=== PATIENT | male | born 2000 | race Caucasian/White ===

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

== ENCOUNTER 2020-08-09 22:37 | Observation (INO) ==
--- NOTE | 2020-08-09 23:00 | Emergency Department Note ---
Impression & Plan Seizure ED Provider Note Name: ROSALVA LEMA Age: 20 Sex: M Arrives Via: Ambulance Informant: Patient, Mother, EMS ED Provider: Mane Longoria MD Chief Complaint: Seizure Impression: Seizure Medical Decision Makin yr old male with history DMI, Asthma and Epilepsy arrives following witnessed seizure while studying with friends. No head injury nor other trauma. He arrives in no distress and feeling well. No recent missed meds. Given IV flui ds and monitored for 3 hours without further issues. Labs unremarkable. Initial plan to discharge to home however as he was about to leave developed another seizure. Roughly 5 min tonix clonic which broke just as 2mg IV Ativan was being given. Patient post ictal for some time but gradually coming around. BSG OK post initial seizure. Still no neuro deficits nor headache. Did opt to load with further Keppra at this time. Hospitalist in to evaluate further. I did have discussion with mother regarding findings and plan. Triage/Nursing Notes reviewed by Me Additional history obtained from chart Differentials:Infection, dehydration, metabolic abnormality, hypo/hyperglycemia, electrolyte disturbance, anemia, hypoxia, cardiac sources, intracerebral event, toxicologic, neurologic, as well as other pathologies. Vital Signs: reviewed and remarkable for no significant abnormalities Interventions: saline lock, nss bolus, ativan 2mg IV, keppra 1gm IV Labs:Reviewed and remarkable for no significant abnormalities Cardiac/Tele Monitoring: Cardiac Monitoring: An Order was placed for continuous cardiac monitoring. The monitor shows a rate of 100 with a normal sinus rhythm. Consults:Dr Fischer Hospitalist agrees to evaluate further Plan: Disposition:Hospitalization. Condition: Good History of Present Illness:20 yr old male arrives for evaluation post seizure. Patient was working with friends on a group project this evening when he had a witnessed several minute seizure. Patient notes feeling fine prior to this and does not recall event. Admits vaguely remembering ambulance ride. No recent missed doses of his Keppra/Lamictal and he states he has been relatively unstressed with class/life. No recent trauma, injuries, nor changes to diet. No drugs, etoh, nor tobacco use. States he has long history of seizures with last one about a year ago. No headache, vision changes, chest pain, sob, fevers, neck pain/stiffness, nausea, vomiting, abdominal pain, urinary/bowel symptoms, leg swelling, bruising/rashes, nor other symptoms. Nothing makes better nor worse. Has Neurologist in [place] he follows with. ROS: See above HPI for pertinent positives & negatives. A total of 10 systems reviewed and were otherwise negative. 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 EYES: No scleral icterus, unremarkable pupils. ENT: Mucous membranes moist, no nasal congestion. NECK: No masses appreciated, nomeningismus, trachea is midline. RESPIRATORY: No dyspnea. Clear to auscultation and equal bilaterally. No wheeze, no rhonchi. CARDIOVASCULAR: Regular rate and rhythm.No murmurs, rubs, gallops appreciated. GASTROINTESTINAL: Abdomen soft, non-tender, no peritonitis.Bowel sounds positive.No masses appreciated. BACK: No midline tenderness, no CVA tenderness EXTREMITIES: Normal motion all extremities, no cyanosis, no edema. NEUROLOGIC: Alert and oriented, no acute motor or sensory deficits, no focal weakness, cranial nerves grossly intact. SKIN: No rash, no jaundice, no diaphoresis. PSYCH: Appropriate GCS: 15 ED Course: Times/Reassessments: Feeling well for 3 hours, seizure at discharge, post ictal though stable and gradually coming around Mane Longoria MD Past Med/Surg History Medical History (Updated 08/10/20 @ 02:42 by Tanna Fischer DO) Asthma Epilepsy Seizure Type 1 diabetes Surgical History History of placement of ear tubes Social History Smoking Status: Never smoker Preferred Language: Kiswahili Communication Ability: Impaired Stock Speculator Required: No marital status: Single Current Living Situation: Other Current Living Situation Comment: [employer] student current occupational status: student Feels Safe at Home: Yes Assistive Devices: None Allergies Allergies Allergy/AdvReac Type Severity Reaction Status Date / Time No Known Allergies Allergy Unverified 08/09/20 23:01 Home Meds Home Medications Medication Instructions Recorded Confirmed insulin detemir U-100 [Levemir 15 unit SUBCUT QPM 01/20/19 08/09/20 FlexTouch U-100 Insuln] insulin lispro [Humalog KwikPen 0 unit SUBCUT UD 01/20/19 08/09/20 Insulin] lamotrigine 150 mg PO BID 08/09/20 08/09/20 lamotrigine 200 mg PO BID 08/09/20 08/09/20 levetiracetam 750 mg PO BID 08/09/20 08/09/20 Results & Data (ED) Vital Signs Vital Signs - 24 hr 08/09/20 22:37 08/09/20 22:43 08/09/20 22:59 Temperature 37.0 C Temperature Source Oral Pulse Rate 102 H 89 91 H Pulse Rate [Right Finger] Pulse Rate from SpO2 Sensor 92 H 93 H Respiratory Rate 12 20 14 Respiratory Effort / Characteristics Non-Labored Spontaneous Respiratory Depth Normal Respiratory Pattern Regular Blood Pressure 133/71 133/71 Blood Pressure [Right Arm] Blood Pressure Mean 91 91 Blood Pressure Mean [Right Arm] Pulse Oximetry 95 92 92 Oxygen Delivery Method Room Air Oxygen Flow Rate Sepsis Recent Fever Within 48 Hours No Sepsis New/Unexplained Change in Mental Status No Sepsis Action Taken by Nursing No Action Required 08/09/20 23:00 08/09/20 23:30 08/09/20 23:41 Temperature Temperature Source Pulse Rate 99 H 84 89 Pulse Rate [Right Finger] Pulse Rate from SpO2 Sensor 98 H 85 92 H Respiratory Rate 18 19 19 Respiratory Effort / Characteristics Respiratory Depth Respiratory Pattern Blood Pressure 124/76 124/76 Blood Pressure [Right Arm] Blood Pressure Mean 92 92 Blood Pressure Mean [Right Arm] Pulse Oximetry 94 95 97 Oxygen Delivery Method Oxygen Flow Rate Sepsis Recent Fever Within 48 Hours Sepsis New/Unexplained Change in Mental Status Sepsis Action Taken by Nursing 08/10/20 00:00 08/10/20 00:01 08/10/20 00:33 Temperature Temperature Source Pulse Rate 93 H 86 89 Pulse Rate [Right Finger] Pulse Rate from SpO2 Sensor 93 H 85 88 Respiratory Rate 15 20 23 Respiratory Effort / Characteristics Respiratory Depth Respiratory Pattern Blood Pressure 113/65 Blood Pressure [Right Arm] Blood Pressure Mean 81 Blood Pressure Mean [Right Arm] Pulse Oximetry 97 98 98 Oxygen Delivery Method Oxygen Flow Rate Sepsis Recent Fever Within 48 Hours Sepsis New/Unexplained Change in Mental Status Sepsis Action Taken by Nursing 08/10/20 00:34 08/10/20 00:35 08/10/20 01:00 Temperature Temperature Source Pulse Rate 82 81 81 Pulse Rate [Right Finger] Pulse Rate from SpO2 Sensor 83 81 82 Respiratory Rate 15 16 17 Respiratory Effort / Characteristics Respiratory Depth Respiratory Pattern Blood Pressure 101/75 117/64 Blood Pressure [Right Arm] Blood Pressure Mean 83 81 Blood Pressure Mean [Right Arm] Pulse Oximetry 94 98 96 Oxygen Delivery Method Oxygen Flow Rate Sepsis Recent Fever Within 48 Hours Sepsis New/Unexplained Change in Mental Status Sepsis Action Taken by Nursing 08/10/20 01:01 08/10/20 01:37 08/10/20 01:38 Temperature Temperature Source Pulse Rate 79 114 H Pulse Rate [Right Finger] Pulse Rate from SpO2 Sensor 79 109 H 114 H Respiratory Rate 18 20 Respiratory Effort / Characteristics Respiratory Depth Respiratory Pattern Blood Pressure 151/75 H Blood Pressure [Right Arm] Blood Pressure Mean 100 Blood Pressure Mean [Right Arm] Pulse Oximetry 96 99 99 Oxygen Delivery Method Oxygen Flow Rate Sepsis Recent Fever Within 48 Hours Sepsis New/Unexplained Change in Mental Status Sepsis Action Taken by Nursing 08/10/20 01:42 08/10/20 02:00 08/10/20 02:01 Temperature Temperature Source Pulse Rate 105 H 101 H Pulse Rate [Right Finger] 114 H Pulse Rate from SpO2 Sensor 105 H 102 H Respiratory Rate 20 21 20 Respiratory Effort / Characteristics Respiratory Depth Respiratory Pattern Blood Pressure 122/58 L Blood Pressure [Right Arm] 151/75 H Blood Pressure Mean 79 Blood Pressure Mean [Right Arm] 100 Pulse Oximetry 99 99 99 Oxygen Delivery Method Room Air Non-rebreather Non-rebreather Oxygen Flow Rate 15 15 Sepsis Recent Fever Within 48 Hours Sepsis New/Unexplained Change in Mental Status Sepsis Action Taken by Nursing Laboratory Data Result diagrams: 08/09/20 22:50 08/09/20 22:50 Lab Results 08/09/20 08/09/20 08/10/20 Range/Units 22:50 22:50 01:56 WBC 9.59 (4.8-10.8) K/uL RBC 5.05 (4.7-6.1) M/uL Hgb 15.2 (14.0-18.0) g/dL Hct 45.0 (42-52) % MCV 89.1 (80-100) fL MCH 30.1 (25-34) pg MCHC 33.8 (32-36) g/dL RDW Std Deviation 39.1 (36.4-46.3) fL RDW Coeff of Paulette 12.3 (11.5-14.5) % Plt Count 327 (130-400) K/uL MPV 10.1 (7.4-10.4) fL Immature Gran % (Auto) 0.2 % Neut % (Auto) 52.6 % Lymph % (Auto) 38.3 % Hutchinson % (Auto) 7.8 % Eos % (Auto) 0.8 % Baso % (Auto) 0.3 % Neut # (Auto) 5.04 (1.4-6.5) K/uL Lymph # (Auto) 3.67 H (1.2-3.4) K/uL Hutchinson # (Auto) 0.75 H (0.11-0.59) K/uL Eos # (Auto) 0.08 (0-0.5) K/uL Baso # (Auto) 0.03 (0-0.2) K/uL Immature Gran # (Auto) 0.02 (0.00-0.02) K/uL Sodium 138 (136-145) mmol/L Potassium 4.1 (3.5-5.1) mmol/L Chloride 104 (98-107) mmol/L Carbon Dioxide 24 (21-32) mmol/L Anion Gap 10.0 (3-11) BUN 18 (7-18) mg/dl Creatinine 1.16 (0.6-1.4) mg/dl Est Cr Clr Drug Dosing 98.5 ml/min Est GFR ( Amer) 103.0 Est GFR (Non-Af Amer) 88.9 BUN/Creatinine Ratio 15.6 (10-20) Glucose 188 H (70-99) mg/dl POC Glucose (70-99) mg/dl Calcium 9.3 (8.5-10.1) mg/dl Phosphorus 3.8 (2.5-4.9) mg/dl Magnesium 2.2 (1.8-2.4) mg/dl COVID-19 Eval Order CovFluRsv at [facility] SARS-CoV-2 (PCR) (Negative) Influenza Type A (PCR) (Neg) Influenza Type B (PCR) (Neg) RSV (RT-PCR) (Neg) 08/10/20 08/10/20 Range/Units 01:56 02:02 WBC (4.8-10.8) K/uL RBC (4.7-6.1) M/uL Hgb (14.0-18.0) g/dL Hct (42-52) % MCV (80-100) fL MCH (25-34) pg MCHC (32-36) g/dL RDW Std Deviation (36.4-46.3) fL RDW Coeff of Paulette (11.5-14.5) % Plt Count (130-400) K/uL MPV (7.4-10.4) fL Immature Gran % (Auto) % Neut % (Auto) % Lymph % (Auto) % Hutchinson % (Auto) % Eos % (Auto) % Baso % (Auto) % Neut # (Auto) (1.4-6.5) K/uL Lymph # (Auto) (1.2-3.4) K/uL Hutchinson # (Auto) (0.11-0.59) K/uL Eos # (Auto) (0-0.5) K/uL Baso # (Auto) (0-0.2) K/uL Immature Gran # (Auto) (0.00-0.02) K/uL Sodium (136-145) mmol/L Potassium (3.5-5.1) mmol/L Chloride (98-107) mmol/L Carbon Dioxide (21-32) mmol/L Anion Gap (3-11) BUN (7-18) mg/dl Creatinine (0.6-1.4) mg/dl Est Cr Clr Drug Dosing ml/min Est GFR ( Amer) Est GFR (Non-Af Amer) BUN/Creatinine Ratio (10-20) Glucose (70-99) mg/dl POC Glucose 168 H (70-99) mg/dl Calcium (8.5-10.1) mg/dl Phosphorus (2.5-4.9) mg/dl Magnesium (1.8-2.4) mg/dl COVID-19 Eval Order SARS-CoV-2 (PCR) NEGATIVE (Negative) Influenza Type A (PCR) Negative (Neg) Influenza Type B (PCR) Negative (Neg) RSV (RT-PCR) Negative (Neg) Administered Medications Discontinued Medications Lorazepam (Ativan) 2 mg in 4 mls @ 4 mls/min IV NOW STA Stop: 08/10/20 01:37 Last Admin: 08/10/20 01:45 Dose: 4 mls/min Documented by: [id number] Sodium Chloride (Nss 1000ml) 1,000 mls @ 999 mls/hr IV .Q1H1M ONE Stop: 08/10/20 02:36 Last Infusion: 08/10/20 03:07 Dose: 0 mls/hr Documented by: [id number] Admin: 08/10/20 01:47 Dose: 999 mls/hr Documented by: [id number] Levetiracetam 1,000 mg/ Sodium (Chloride) 110 mls @ 440 mls/hr IV NOW STA Stop: 08/10/20 01:50 Last Infusion: 08/10/20 02:15 Dose: 0 mls/hr Documented by: [id number] Admin: 08/10/20 01:59 Dose: 440 mls/hr Documented by: [id number] Insulin Glargine (Lantus Per Unit Charge) 7 units SQ NOW STA Stop: 08/10/20 02:27 Last Admin: 08/10/20 02:57 Dose: 7 units Documented by: [id number] Cosigned by: [id number] Lorazepam (Lorazepam 2 Mg/Ml Vial (Im Use)) Confirm Administered Dose 2 mg .TREY DAY .STK-MED ONE Stop: 08/10/20 01:35 Last Admin: 08/10/20 02:02 Dose: Not Given Documented by: [id number] Discharge Plan Visit Data Chief Complaint: Seizure Stated Complaint: Seizure like activity w/ hx of the same ED Provider: Mane Longoria Discharge Problem: Seizure Patient Disposition: Admitted As Inpatient Condition: Good Discharge Instructions Interventions: ED Discharge Assessment Last Done: 08/10/20 01:22
[2020-08-09 23:07] LABS: Basophils # (auto) 0.03 K/uL (0-0.2); Basophils % (auto) 0.3 %; Eosinophils # (auto) 0.08 K/uL (0-0.5); Eosinophils % (auto) 0.8 %; Hemoglobin 15.2 g/dL (14.0-18.0); Immature Granulocytes # (auto) 0.02 K/uL (0.00-0.02); Immature Granulocytes % (auto) 0.2 %; Lymphocytes # (auto) 3.67 K/uL (1.2-3.4); Lymphocytes % (auto) 38.3 %; Mean Corpuscular Hemoglobin 30.1 pg (25-34); Mean Corpuscular Hgb Conc 33.8 g/dL (32-36); Mean Corpuscular Volume 89.1 fL (80-100); Mean Platelet Volume 10.1 fL (7.4-10.4); Monocytes # (auto) 0.75 K/uL (0.11-0.59); Monocytes % (auto) 7.8 %; Neutrophils # (auto) 5.04 K/uL (1.4-6.5); Neutrophils % (auto) 52.6 %; Platelet Count 327 K/uL (130-400); RDW Coefficient of Variation 12.3 % (11.5-14.5); RDW Standard Deviation 39.1 fL (36.4-46.3); Red Blood Count 5.05 M/uL (4.7-6.1); White Blood Count 9.59 K/uL (4.8-10.8)
[2020-08-09 23:25] LABS: BUN Creatinine Ratio 15.6 (10-20); Calcium 9.3 mg/dl (8.5-10.1); Creatinine Clr Calc Pharmacy 98.5 ml/min; Est GFR (Non-African American) 88.9; Potassium 4.1 mmol/L (3.5-5.1)
[2020-08-10] MEDS ORDERED: LORazepam 2 MG/ML VIAL (IM USE) ONE (01:34)
[2020-08-10] MEDS ORDERED: LORazepam 2 MG/4 ML VIAL IV STA (01:36)
[2020-08-10] MEDS ORDERED: SODIUM CHLORIDE 0.9% 1000ML 1,000 ML IV ONE (01:36)
[2020-08-10] MEDS ORDERED: levETIRAcetam 1,000 MG in 0.9 % SODIUM CHLORIDE 100 ML IV STA (01:36)
[2020-08-10] MEDS ORDERED: LANTUS PER UNIT CHARGE SQ STA (02:26)
--- NOTE | 2020-08-10 02:39 | History & Physical Report ---
Date of Service August 10, 2020 Assessment & Plan (1) Seizure: Patient with history of epilepsy presenting with two witnessed tonic- clonic seizures this evening. He reports compliance with his medications. Patient administered Ativan x gm and Keppra in ER. Presently somnolent, arousable, able to answer some questions and follow commands. No focal deficits. -Admit to medical with telemetry -Maintain seizure precautions -Check Mg, PO3, UA and Utox -Continue Lamictal 350mg po BID -Increase Keppra to 1000mg po BID -Consider Neurology consultation Present on Admission?: Yes (2) Type 1 diabetes: Patient reports he did not take his insulin this evening. He typically takes Levemir 15u qHS -Will give Lantus 7u now -ISS -Goal blood sugar 100 - 140 Present on Admission?: Yes (3) Asthma: Chronic. Stable -Continue to monitor F/E/N- Heplock. Monitor electrolytes. CC-Type I Diabetic diet as tolerated Ppx - Low risk for DVT Code - Full Dispo - Admit to medical with telemetry Present on Admission?: Yes History of Present Illness Chief Complaint: Seizure Primary Care Provider: [facility] Elder Guillen is a 20yo male with history of Type I DM, Epilepsy and Asthma presenting from home after a witnessed seizure. Patient is post-ictal at the time of my encounter and is unable to provide full details - history obtained through discussion with ER attending and chart review. Patient has had seizures since he was a senior in high school. He has approximately one seizure per year. This evening he was studying with some friends when he had a tonic clonic seizure. He was brought to [facility] where he was observed in the ER for some time. He was doing well and feeling back to baseline. He was being discharged home and as he was walking out he leaned against the wall and had a tonic clonic seizure lasting appx 3-4 minutes. He was administered Ativan x 2mg IV and Keppra x 1gm. Patient is presently resting comfortably, NAD. ER Course: Ativan x 2mg, NSS x 1L, Keppra x 1gm Allergies Allergy/AdvReac Type Severity Reaction Status Date / Time No Known Allergies Allergy Unverified 08/09/20 23:01 Home Medications Medication Instructions Recorded Confirmed Type insulin detemir U-100 [Levemir 15 unit SUBCUT QPM 01/20/19 08/09/20 History FlexTouch U-100 Insuln] insulin lispro [Humalog KwikPen 0 unit SUBCUT UD 01/20/19 08/09/20 History Insulin] lamotrigine 150 mg PO BID 08/09/20 08/09/20 History lamotrigine 200 mg PO BID 08/09/20 08/09/20 History levetiracetam 750 mg PO BID 08/09/20 08/09/20 History Past Med/Surg History Medical History (Updated 08/10/20 @ 02:42 by Tanna Fischer DO) Asthma Epilepsy Seizure Type 1 diabetes Surgical History History of placement of ear tubes Social History Smoking Status: Never smoker Preferred Language: Italian marital status: Single current occupational status: student Feels Safe at Home: Yes Review of Systems Review of Systems: Unobtainable due to reduced consciousness Physical Exam Physical Exam: General: patient somnolent, arousable, answers questions and follows commands then falls back to sleep Skin: warm, dry, intact, no rashes or lesions HEENT: NC/AT, PERRL, EOMI, anicteric sclera, conjunctiva without injection, external ear normal to inspection and nontender, nares patent, moist mucus membranes, dentition intact, no oropharyngeal lesions, neck supple, trachea midline, no LAD, no thyromegaly, no JVD Heart: +S1/S2, regular, tachycardic, no m/r/g Lungs: equal air entry bilaterally, no rales/rhonchi/wheezes Abd: +BS, soft, NT/ND, no masses/organomegaly/ascites Ext: warm, 2+ pulses in UE/LE bilaterally, no clubbing/cyanosis or edema Neuro: limited exam secondary to somnolence, grossly nonfocal, no facial droop, moving all extremities on command with equal strength 5/5 Results & Data Results & Data (MN) Vital Signs (Past 12 Hours) Vital Signs Temp Pulse Pulse Resp BP BP Pulse Ox 08/10/20 01:42 114 H 20 151/75 H 99 08/10/20 01:38 114 H 20 99 04/20/21 01:37 151/75 H 99 08/10/20 01:01 79 18 96 08/10/20 01:00 81 17 117/64 96 08/10/20 00:35 81 16 98 08/10/20 00:34 82 15 101/75 94 08/10/20 00:33 89 23 98 08/10/20 00:01 86 20 98 08/10/20 00:00 93 H 15 113/65 97 08/09/20 23:41 89 19 124/76 97 08/09/20 23:30 84 19 124/76 95 08/09/20 23:00 99 H 18 94 08/09/20 22:59 91 H 14 92 08/09/20 22:43 89 20 133/71 92 08/09/20 22:37 37.0 C 102 H 12 133/71 95 Laboratory Results Lab Results 08/09/20 08/09/20 08/10/20 Range/Units 22:50 22:50 01:56 WBC 9.59 (4.8-10.8) K/uL RBC 5.05 (4.7-6.1) M/uL Hgb 15.2 (14.0-18.0) g/dL Hct 45.0 (42-52) % MCV 89.1 (80-100) fL MCH 30.1 (25-34) pg MCHC 33.8 (32-36) g/dL RDW Std Deviation 39.1 (36.4-46.3) fL RDW Coeff of Paulette 12.3 (11.5-14.5) % Plt Count 327 (130-400) K/uL MPV 10.1 (7.4-10.4) fL Immature Gran % (Auto) 0.2 % Neut % (Auto) 52.6 % Lymph % (Auto) 38.3 % [place] % (Auto) 7.8 % Eos % (Auto) 0.8 % Baso % (Auto) 0.3 % Neut # (Auto) 5.04 (1.4-6.5) K/uL Lymph # (Auto) 3.67 H (1.2-3.4) K/uL [place] # (Auto) 0.75 H (0.11-0.59) K/uL Eos # (Auto) 0.08 (0-0.5) K/uL Baso # (Auto) 0.03 (0-0.2) K/uL Immature Gran # (Auto) 0.02 (0.00-0.02) K/uL Sodium 138 (136-145) mmol/L Potassium 4.1 (3.5-5.1) mmol/L Chloride 104 (98-107) mmol/L Carbon Dioxide 24 (21-32) mmol/L Anion Gap 10.0 (3-11) BUN 18 (7-18) mg/dl Creatinine 1.16 (0.6-1.4) mg/dl Est Cr Clr Drug Dosing 98.5 ml/min Est GFR ( Amer) 103.0 Est GFR (Non-Af Amer) 88.9 BUN/Creatinine Ratio 15.6 (10-20) Glucose 188 H (70-99) mg/dl POC Glucose (70-99) mg/dl Calcium 9.3 (8.5-10.1) mg/dl COVID-19 Eval Order CovFluRsv at [facility] 08/10/20 Range/Units 02:02 WBC (4.8-10.8) K/uL RBC (4.7-6.1) M/uL Hgb (14.0-18.0) g/dL Hct (42-52) % MCV (80-100) fL MCH (25-34) pg MCHC (32-36) g/dL RDW Std Deviation (36.4-46.3) fL RDW Coeff of Paulette (11.5-14.5) % Plt Count (130-400) K/uL MPV (7.4-10.4) fL Immature Gran % (Auto) % Neut % (Auto) % Lymph % (Auto) % [place] % (Auto) % Eos % (Auto) % Baso % (Auto) % Neut # (Auto) (1.4-6.5) K/uL Lymph # (Auto) (1.2-3.4) K/uL [place] # (Auto) (0.11-0.59) K/uL Eos # (Auto) (0-0.5) K/uL Baso # (Auto) (0-0.2) K/uL Immature Gran # (Auto) (0.00-0.02) K/uL Sodium (136-145) mmol/L Potassium (3.5-5.1) mmol/L Chloride (98-107) mmol/L Carbon Dioxide (21-32) mmol/L Anion Gap (3-11) BUN (7-18) mg/dl Creatinine (0.6-1.4) mg/dl Est Cr Clr Drug Dosing ml/min Est GFR ( Amer) Est GFR (Non-Af Amer) BUN/Creatinine Ratio (10-20) Glucose (70-99) mg/dl POC Glucose 168 H (70-99) mg/dl Calcium (8.5-10.1) mg/dl COVID-19 Eval Order PG Care Time/CCT Total # of Minutes Spent Total Time Spent with Patient: Total time spent is greater than 50% in coordination of care (as documented) at patient's floor/unit and/or counseling patient: Coding Level of Care Code 06446 Initial Inpt Care Lvl 2 Diagnoses Seizure R56.9 Type 1 diabetes E10.9 Diabetes mellitus complication status: without complication Asthma J45.909 Asthma severity: unspecified severity Asthma persistence: unspecified Asthma complication type: uncomplicated (1) Asthma Asthma severity: unspecified severity Asthma persistence: unspecified Asthma complication type: uncomplicated Qualified Code(s): J45.909 - Unspecified asthma, uncomplicated (2) Type 1 diabetes Diabetes mellitus complication status: without complication Qualified Code(s): E10.9 - Type 1 diabetes mellitus without complications
[2020-08-10 02:41] LABS: Influenza A virus by PCR Negative (Neg); Influenza B virus by PCR Negative (Neg); RSV by PCR Negative (Neg); SARS CoV2 RNA(COVID-19) InHosp NEGATIVE (Negative)
[2020-08-10] MEDS ORDERED: DEXTROSE 50% 50 ML SYRINGE IV PRN (04:11)
[2020-08-10] MEDS ORDERED: GLUCAGON FOR INJ 1 MG VIAL SQ PRN (04:11)
[2020-08-10] MEDS ORDERED: GLUCOSE 10 TABS/TUBE PO PRN (04:11)
[2020-08-10] MEDS ORDERED: LORazepam 1 MG/2 ML VIAL IV PRN (04:11)
[2020-08-10] MEDS ORDERED: GLUCOSE 40% GEL 15 GM TUBE PO PRN (04:11)
[2020-08-10] MEDS ORDERED: CARBOHYDRATES FOR HYPOGLYCEMIA PO PRN (04:11)
[2020-08-10 05:10] LABS: Magnesium 2.2 mg/dl (1.8-2.4); Phosphorus 3.8 mg/dl (2.5-4.9)
[2020-08-10 07:04] LABS: Estimated Average Glucose 128 mg/dl; Hemoglobin A1C 6.1 % (4.5-5.6)
[2020-08-10] MEDS: INSULIN ASPART 100 UNITS/ML 3 ML PEN SC SCH ×2 (08:26→13:03)
[2020-08-10] MEDS ORDERED: lamoTRIgine 100 MG TAB PO SCH ×3 (09:00)
[2020-08-10] MEDS ORDERED: levETIRAcetam 500 MG TAB PO SCH (09:00)
[2020-08-10 11:57] LABS: Appearance Urine Clear (Clear); Bilirubin Urine Negative (Negative); Blood Urine Negative (Negative); Color Urine Yellow; Glucose Urine UA Negative (Negative); Ketones Urine Negative (Negative); Leukocyte Esterase Urine Negative (Negative); Nitrite Urine Negative (Negative); Protein Urine Negative (Negative); Specific Gravity Urine 1.022 (1.000-1.030); Urobilinogen Urine Negative (Negative)
[2020-08-10 12:20] LABS: Amphetamines+Metham, Urine Neg (Neg); Barbiturates, Urine Neg (Neg); Benzodiazepine, Urine Neg (Neg); Cocaine, Urine Neg (Neg); MDMA (Ecstacy), Urine Neg (Neg); Methadone, Urine Neg (Neg); Opiate, Urine Neg (Neg); Phencyclidine, Urine Neg (Neg)
--- NOTE | 2020-08-10 14:18 | Electrocardiogram Report ---
Test Reason : Blood Pressure : / mmHG Vent. Rate : 099 BPM Atrial Rate : 099 BPM P-R Int : 118 ms QRS Dur : 102 ms QT Int : 352 ms P-R-T Axes : 068 073 055 degrees QTc Int : 451 ms Normal sinus rhythm Incomplete right bundle branch block Borderline ECG When compared with ECG of 20-JAN-2019 15:19, No significant change was found Confirmed by Kaushal Chery ([id number]) on 08/10/2020 2:18:22 PM Referred By: REFERRED SELF Confirmed By:Edvin Chery
--- NOTE | 2020-08-10 18:17 | Discharge Summary ---
Date of Service August 10, 2020 Principal Diagnosis Seizure Discharge Exam The patient appeared well Vital signs as documented. Lungs are clear to auscultation and appear unlabored Cardiac exam, Rhythm is regular.. No murmurs, rubs or gallops. Abdominal exam reveals normal bowel sounds, soft non tender, no masses Extremities are nonedematous and both pedal pulses are normal. Neurologic exam is alert and oriented, no focal loss of strength or sensation Skin is without bruises or rashes Psychologically is without concerns for anxiety or depression. Discharge Data Allergies Allergy/AdvReac Type Severity Reaction Status Date / Time No Known Allergies Allergy Unverified 08/09/20 23:01 Consultations 08/10/20 02:14 ED Decision to Admit Stat Hospital Course (1) Seizure: Patient with history of epilepsy presenting with two witnessed tonic- clonic seizures this evening. He reports compliance with his medications. Patient administered Ativan x gm and Keppra in ER. Presently somnolent, arousable, able to answer some questions and follow commands. No focal deficits. -Admit to medical with telemetry -Maintain seizure precautions -Labs and tox screen are unrevealing -Continue Lamictal 350mg po BID -Increase Keppra to 1500mg po BID -I personally spoke to Dr. Mcdowell the patient's neurologist recommend increasing his Keppra back to 1500 twice daily. I communicated this to both the patient and his mother. I sent a new prescription to his pharmacy. Patient voiced understanding of this increase in medications (2) Type 1 diabetes: Glucoses have been stable without DKA patient resume his home glucose control (3) Asthma: Chronic. Stable Code - Full Patient is comfortable going home with Méndez his mother will arrange a RA from his dorm to look in on him tonight Total Time Total Time Spent Total Time Spent (In Minutes): It required greater than 30 minutes to prepare this patient for discharge Discharge Plan Discharge Items Patient Disposition: Home - Self-Care Reason For Visit: SEIZURE Discharge Diagnosis: seizure with history of the same Condition on Discharge: Good Activity: Resume your previous activity Non-emergency contact: Primary Care Provider and Neurologist Call non-emergency contact if: you have any medication questions and your symptoms worsen Follow-up/Referrals: [place],[facility] [Primary Care Provider] - Diet: Regular Addtl Attending Provider Instructions: increase you Keppra to 1500mg twice a day and continue your lamictal as before, your neurologist will have a follow up appointment with you and be contacting you with that date Pending Studies at Discharge: No Stand-Alone Forms: [facility], Smoking Cessation Medications and DC Order Prescriptions: Continued insulin lispro [Humalog KwikPen Insulin] 100 unit/mL insulin pen 0 unit subcut UD RF: 0 Levemir FlexTouch U-100 Insuln 100 unit/mL (3 mL) insulin pen 15 unit subcut QPM RF: 0 lamotrigine 150 mg tablet 150 mg PO BID RF: 0 lamotrigine 200 mg tablet 200 mg PO BID RF: 0 Changed levetiracetam 750 mg tablet 1,500 mg PO BID Qty: 120 RF: 5 Discharge Orders: Discharge Order (Routine); Ordered 08/10/20 Ordered By: Adalberto Gould/Other Patient Handouts: Managing Type 1 Diabetes, Managing Diabetes: The A1C Test Admission Data Admit Date/Time: 08/10/20 02:15 Attending Provider: Adalberto Francis Admit Provider: Tanna Fischer Primary Care Provider: [facility] Other Providers: Tanna Fischer Other Interventions: Discharge Summary Assessment (RN) Last Done: 08/10/20 13:14 Coding Level of Care Code D/C Day Management >30 mins Diagnoses Seizure R56.9 Type 1 diabetes E10.9 Diabetes mellitus complication status: without complication Asthma J45.909 Asthma severity: unspecified severity Asthma persistence: unspecified Asthma complication type: uncomplicated
[2020-08-10] MEDS ORDERED: INSULIN DETEMIR FLEXPEN/FLEX TOUCH 100 UNITS/ML 3ML SQ SCH (21:00)
== END 2020-08-10 14:02 | disposition home or self-care (01) ==
LOC: ED 22:37 → 2N 08-10 01:22 → INTOOBSV 08-10 02:15 → 2N 08-10 02:15 → SUATTDRO 08-10 02:15